=== PATIENT | male | born 2000 | race Two or more races ===

== ENCOUNTER 2019-11-07 21:46 | Emergency (ER) | payer OTHER ==
--- NOTE | 2019-11-07 23:57 | ED Physician Documentation ---
History of Present Illness - Stated complaint Stated Complaint: R HAND INJ - Chief complaint Chief Complaint: Trauma Ext - History obtained from History obtained from: Patient - Additonal information Additional information: Patient is a 19-year-old male who was boxing and is complaining of right hand pain denies any other complaints he is right-hand dominant.Denies any open wounds. Review of Systems Constitutional: reports: Reviewed and negative Eyes: reports: Reviewed and negative Ears: reports: Reviewed and negative Nose: reports: Reviewed and negative Throat: reports: Reviewed and negative Cardiac: reports: Reviewed and negative Respiratory: reports: Reviewed and negative GI: reports: Reviewed and negative : reports: Reviewed and negative Skin: reports: Reviewed and negative Musculoskeletal: reports: Extremity pain Neurologic: reports: Reviewed and negative Psychiatric: reports: Reviewed and negative Endocrine: reports: Reviewed and negative Immunocompromised: reports: Reviewed and negative PD PAST MEDICAL HISTORY - Past Medical History Past Medical History: No - Past Surgical History Past Surgical History: No - Allergies Allergies/Adverse Reactions: Allergies Allergy/AdvReac Type Severity Reaction Status Date / Time No Known Drug Allergies Allergy Verified 10/16/19 17:06 - Social History Does the pt smoke?: No Smoking Status: Never smoker Does the pt drink ETOH?: No Does the pt have substance abuse?: No - Immunizations Immunizations are current?: Yes - POLST Patient has POLST: No PD ED PE NORMAL - Vitals Vital signs reviewed: Yes - General General: Alert and oriented X 3, No acute distress - HEENT HEENT: PERRL - Neck Neck: Supple, no meningeal sign - Cardiac Cardiac: RRR, No murmur - Respiratory Respiratory: Clear bilaterally - Abdomen Abdomen: Normal bowel sounds, Soft, Non tender, Non distended - Derm Derm: Warm and dry - Extremities Extremities: No deformity, Other (Superficial abrasions of the dorsum of the right hand no gross deformity no isolated tenderness over the anatomic snuffbox radial median ulnar motor and sensory exam are intact sensations intact to light touch compartments are soft strength is 5 out of 5) - Neuro Neuro: Alert and oriented X 3 - Psych Psych: Normal mood, Normal affect Results - Vitals Vitals: Vital Signs - 24 hr 11/07/19 22:08 Temperature 36.7 C Heart Rate 89 Respiratory 18 Rate Blood Pressure 114/65 O2 Saturation 98 Oxygen O2 Source Room air PD MEDICAL DECISION MAKING - ED course Complexity details: considered differential (Right hand abrasions and contusions x-rays are negative) Departure - Departure Disposition: 01 Home, Self Care Clinical Impression: Hand contusion Qualifiers: Encounter type: initial encounter Laterality: right Qualified Code(s): S60.221A - Contusion of right hand, initial encounter Condition: Stable Instructions: ED Sprain Hand Follow-Up: your, doctor [Other] Comments: Follow-up with your medical provider on Saturday for recheck. Ice as needed. May take either Tylenol or ibuprofen as needed. May use an Hugo wrap as needed.
[2019-11-08 01:18] VITALS: BP 122/64
--- NOTE | 2019-11-08 08:46 | XRAY Report ---
PROCEDURE: Hand 3 View RT INDICATIONS: right hand pain TECHNIQUE: 3 views of the hand(s) acquired. COMPARISON: None FINDINGS: Bones: No fractures or dislocations. No suspicious bony lesions. Soft tissues: No suspicious soft tissue calcifications. IMPRESSION: No displaced fractures are seen. Note: No significant discrepancy from the preliminary report. Reviewed by: Freddie Cherry MD on 11/08/2019 7:45 AM ANGELLA Approved by: Freddie Cherry MD on 11/08/2019 7:45 AM AKSHAMIR Station ID: [id number]
== END 2019-11-08 01:21 | disposition home or self-care (01) ==
LOC: ED 21:46
DX: S60.221A Contusion of right hand, initial encounter (principal); S60.511A Abrasion of right hand, initial encounter; W51.XXXA Accidental striking against or bumped into by another person, initial encounter; Y93.71 Activity, boxing
CPT/HCPCS: 99282; 99283

== ENCOUNTER 2020-08-10 09:28 | Emergency (ER) | payer OTHER ==
[2020-08-10 09:44] VITALS: BP 117/74
[2020-08-10] MEDS ORDERED: KETOROLAC 30 MG/ML VIAL IVP STA (09:53)
--- NOTE | 2020-08-10 09:54 | ED Physician Documentation ---
PD HPI ABD PAIN - Stated complaint Stated Complaint: ABDOMINAL PX - Chief complaint Chief Complaint: Abd Pain - History obtained from History obtained from: Patient - Additional information Additional information: Previously healthy 20-year-old gentleman developed periumbilical pain yesterday morning and vomited once. It got better throughout the day but then returned overnight and had trouble sleeping last night. He is no longer nauseous. No changes in his bowel movements. No testicular pain. No history of abdominal surgeries. Review of Systems Ten Systems: 10 systems reviewed and negative Constitutional: denies: Fever, Chills Nose: reports: Reviewed and negative Throat: reports: Reviewed and negative Cardiac: reports: Reviewed and negative Respiratory: reports: Reviewed and negative PD PAST MEDICAL HISTORY - Past Medical History Past Medical History: Yes Respiratory: Asthma - Past Surgical History Past Surgical History: No - Present Medications Home Medications: Ambulatory Orders Medication Instructions Recorded Confirmed No Known Home Medications 08/10/20 08/10/20 - Allergies Allergies/Adverse Reactions: Allergies Allergy/AdvReac Type Severity Reaction Status Date / Time No Known Drug Allergies Allergy Verified 08/10/20 09:44 - Social History Does the pt smoke?: No Smoking Status: Never smoker Does the pt drink ETOH?: No Does the pt have substance abuse?: No - Immunizations Immunizations are current?: Yes - POLST Patient has POLST: No PD ED PE NORMAL - Vitals Vital signs reviewed: Yes - General General: Alert and oriented X 3, No acute distress - HEENT HEENT: PERRL, EOMI - Neck Neck: Supple, no meningeal sign, No bony TTP - Cardiac Cardiac: RRR, No murmur - Respiratory Respiratory: No respiratory distress, Clear bilaterally - Abdomen Abdomen: Normal bowel sounds, Other (Mild right-sided abdominal tenderness that actually seems to spare the right lower quadrant. No surgical signs.) - Back Back: No CVA TTP, No spinal TTP - Derm Derm: Normal color, Warm and dry - Extremities Extremities: No edema, No calf tenderness / cord - Neuro Neuro: Alert and oriented X 3, Normal speech Results - Vitals Vitals: Vital Signs - 24 hr 08/10/20 09:34 Temperature 36.3 C L Heart Rate 70 Respiratory 16 Rate Blood Pressure 117/74 O2 Saturation 100 Oxygen O2 Source Room air - Labs Labs: Laboratory Tests 08/10/20 08/10/20 08/10/20 09:18 10:12 10:12 WBC 4.0 L RBC 5.13 Hgb 14.4 Hct 42.4 MCV 82.7 MCH 28.1 MCHC 34.0 RDW 12.0 Plt Count 217 MPV 10.2 Neut # (Auto) 2.4 Lymph # (Auto) 1.1 L [place] # (Auto) 0.3 Eos # (Auto) 0.1 Baso # (Auto) 0.1 Absolute Nucleated RBC 0.00 Nucleated RBC % 0.0 Sodium 137 Potassium 4.0 Chloride 101 Carbon Dioxide 28 Anion Gap 8.0 BUN 16 Creatinine 1.0 Estimated GFR (MDRD) 94 Glucose 93 Calcium 9.6 Total Bilirubin 0.8 AST 19 ALT 18 Alkaline Phosphatase 71 Total Protein 8.0 Albumin 4.7 Globulin 3.3 Albumin/Globulin Ratio 1.4 Lipase 25 Urine Color DARK YELLOW Urine Clarity CLEAR Urine pH 6.0 Ur Specific [place] >=1.030 H Urine Protein NEGATIVE Urine Glucose (UA) NEGATIVE Urine Ketones NEGATIVE Urine Occult Blood NEGATIVE Urine Nitrite NEGATIVE Urine Bilirubin NEGATIVE Urine Urobilinogen 0.2 (NORMAL) Ur Leukocyte Esterase NEGATIVE Ur Microscopic Review NOT INDICATED Urine Culture Comments NOT INDICATED PD MEDICAL DECISION MAKING - ED course ED course: 20 yo male with periumbilcal pain but no e/o serious etiology on w/u. Incidental finding and need for f/u discussed. Departure - Departure Disposition: 01 Home, Self Care Clinical Impression: Abdominal pain Qualifiers: Abdominal location: right lower quadrant Qualified Code(s): R10.31 - Right lower quadrant pain Condition: Good Record reviewed to determine appropriate education?: Yes Instructions: ED Abdominal Pain Unkn Cause Male Comments: No evidence of anything serious like appendicitis. That said the following incidental finding was found on your CT scan: Enhancing focus within the medial segment left hepatic lobe, which may represent a hemangioma or focal nodular hyperplasia. Liver protocol MRI with and without intravenous contrast is recommended to exclude less likely, more aggressive etiologies. [place] in a nonemergent fashion. Return for new or worsening symptoms. Forms: Activity restrictions
[2020-08-10 09:55] LABS: BILIRUBIN,URINE NEGATIVE (NEGATIVE); GLUCOSE, URINE (UA) NEGATIVE (NEGATIVE); KETONES,URINE (UA) NEGATIVE (NEGATIVE); LEUKOCYTE ESTERASE, URINE NEGATIVE (NEGATIVE); NITRITE,URINE NEGATIVE (NEGATIVE); OCCULT BLOOD,URINE NEGATIVE (NEGATIVE); PROTEIN,URINE NEGATIVE (NEGATIVE); UROBILINOGEN,URINE 0.2 (NORMAL) E.U./dL (NORMAL)
[2020-08-10 10:20] LABS: BASOPHILS # (AUTO) 0.1 10^3/uL (0.0-0.1); BASOPHILS % (AUTO) 1.2 %; EOSINOPHILS # (AUTO) 0.1 10^3/uL (0.0-0.7); EOSINOPHILS % (AUTO) 3.5 %; HCT - HEMATOCRIT 42.4 % (42.0-52.0); HGB - HEMOGLOBIN 14.4 g/dL (14.0-18.0); LYMPHOCYTES # (AUTO) 1.1 10^3/uL (1.5-3.5); LYMPHOCYTES % (AUTO) 27.2 %; MEAN CORPUSCULAR HEMOGLOBIN 28.1 pg (27.0-31.0); MEAN CORPUSCULAR VOLUME 82.7 fL (80.0-94.0); MEAN PLATELET VOLUME 10.2 fL (7.4-11.4); MONOCYTES # (AUTO) 0.3 10^3/uL (0.0-1.0); MONOCYTES % (AUTO) 8.5 %; NEUTROPHILS # (AUTO) 2.4 10^3/uL (1.5-6.6); NEUTROPHILS % (AUTO) 59.4 %; PLT - PLATELET COUNT 217 10^3/uL (130-450); RED BLOOD COUNT 5.13 10^6/uL (4.70-6.10)
[2020-08-10] MEDS ORDERED: IOVERSOL 320 100 ML VIAL IVP ONE ×2 (10:28→11:46)
[2020-08-10 10:30] LABS: CLARITY,URINE CLEAR (CLEAR)
[2020-08-10 10:37] LABS: ALBUMIN 4.7 g/dL (3.2-5.5); ALBUMIN/GLOBULIN RATIO 1.4 (1.0-2.2); BILIRUBIN,TOTAL 0.8 mg/dL (0.2-1.0); CALCIUM 9.6 mg/dL (8.5-10.3)
--- NOTE | 2020-08-10 11:28 | CT Report ---
PROCEDURE: Abdomen/Pelvis W INDICATIONS: IV only, abd pain CONTRAST: IV CONTRAST: Optiray 320 ml: 100 PO CONTRAST: *NO PO CONTRAST TECHNIQUE: After the administration of IV contrast, 5 mm thick sections acquired from the diaphragms to the symp hysis. 5 mm thick coronal and sagittal reformats were acquired. For radiation dose reduction, the f ollowing was used: automated exposure control, adjustment of mA and/or kV according to patient size. COMPARISON: None. FINDINGS: Image quality: Excellent. ABDOMEN: Lung bases: Lung bases are clear. Heart size is normal. Solid organs: Liver and spleen are normal in size. There is a 15 mm diameter enhancing focus within the medial segment left hepatic lobe. Gallbladder is grossly unremarkable Biliary system is non dila hemal. Pancreas enhances normally. No adrenal nodules. Kidneys demonstrate normal size and enhanceme nt, without hydronephrosis. Peritoneum and bowel: Bowel loops demonstrate normal wall thickness and caliber. Normal appendix. No free fluid or air. Nodes and vessels: No retroperitoneal or mesenteric adenopathy by size criteria. Aorta and inferior vena cava are normal in size. Miscellaneous: No ventral hernias. PELVIS: Genitourinary: Bladder wall thickness is normal. Miscellaneous: No inguinal hernias or adenopathy. Bones: No suspicious bony lesions. No vertebral body compression fractures. IMPRESSION: 1. No acute process. 2. Normal appendix. 3. Enhancing focus within the medial segment left hepatic lobe, which may represent a hemangioma or f ocal nodular hyperplasia. Liver protocol MRI with and without intravenous contrast is recommended to exclude less likely, more aggressive etiologies. Reviewed by: Stpean Ashraf MD on 08/10/2020 11:26 AM PDT Approved by: Stepan Ashraf MD on 08/10/2020 11:26 AM PDT Station ID: [id number]
== END 2020-08-10 11:50 | disposition home or self-care (01) ==
LOC: ED 09:28
DX: R10.31 Right lower quadrant pain (principal)
CPT/HCPCS: 36415; 74177; 80053; 81003; 83690; 85025; 96374; 99284; Q9967; 81001; 87086

== ENCOUNTER 2020-08-31 09:16 | Emergency (ER) | payer OTHER ==
--- OUTSIDE RECORDS SUMMARY | 2020-08-31 09:19 | EXTERNAL MEDICAL SUMMARY RPT | Continuity of Care Document ---
:2000 Demographics Phone Unavailable Preferred Language Unknown Marital Status Unknown Restorationism Affiliation Unknown Race Unknown Ethnic Group Unknown Author Organization [facility] Address [address] [place] [address] Phone Allergies Encounters Medications Problems Results
--- OUTSIDE RECORDS SUMMARY | 2020-08-31 09:24 | EXTERNAL MEDICAL SUMMARY RPT | Continuity of Care Document ---
:2000 Demographics Phone Unavailable Preferred Language Unknown Marital Status Unknown Evangelical Affiliation Unknown Race Unknown Ethnic Group Unknown Author Organization [facility] Address [address] [place] [address] Phone Allergies Encounters Medications Problems Results
[2020-08-31] MEDS ORDERED: KETOROLAC 30 MG/ML VIAL IVP STA (09:28)
--- NOTE | 2020-08-31 09:29 | ED Physician Documentation ---
PD HPI ABD PAIN - Stated complaint Stated Complaint: LOWER ABD PX - Chief complaint Chief Complaint: Abd Pain - History obtained from History obtained from: Patient - Additional information Additional information: 20-year-old gentleman developed lower abdominal pain yesterday which worsened overnight and is now intolerable. Its not associated with nausea, changes in bowel movements, fevers. No urinary complaints. He was seen here last month for periumbilical pain. No emergency medical condition evident at that time but did have an incidental liver cyst which he has seen his doctor for and is in the process of scheduling MR I of the liver. This pain is different. It is more bilateral pelvic. It is not worse with motion. No history of abdominal surgeries. Review of Systems Constitutional: reports: Reviewed and negative Eyes: reports: Reviewed and negative Ears: reports: Reviewed and negative Nose: reports: Reviewed and negative PD PAST MEDICAL HISTORY - Past Medical History Respiratory: Asthma - Past Surgical History Past Surgical History: No - Present Medications Home Medications: Ambulatory Orders Medication Instructions Recorded Confirmed No Known Home Medications 08/10/20 08/31/20 - Allergies Allergies/Adverse Reactions: Allergies Allergy/AdvReac Type Severity Reaction Status Date / Time No Known Drug Allergies Allergy Verified 08/31/20 09:24 - Social History Does the pt smoke?: No Smoking Status: Never smoker Does the pt drink ETOH?: No Does the pt have substance abuse?: No - Immunizations Immunizations are current?: Yes - POLST Patient has POLST: No PD ED PE NORMAL - Vitals Vital signs reviewed: Yes - General General: Alert and oriented X 3, No acute distress - HEENT HEENT: PERRL, EOMI - Neck Neck: Supple, no meningeal sign, No bony TTP - Cardiac Cardiac: RRR, No murmur - Respiratory Respiratory: No respiratory distress, Clear bilaterally - Abdomen Abdomen: Normal bowel sounds, Other (Tender to both lower quadrants, right worse than left, negative Rovsing sign. No surgical signs.) - Back Back: No CVA TTP, No spinal TTP - Derm Derm: Normal color, Warm and dry - Extremities Extremities: No edema, No calf tenderness / cord - Neuro Neuro: Alert and oriented X 3, Normal speech Results - Vitals Vitals: Vital Signs - 24 hr 08/31/20 08/31/20 08/31/20 09:19 09:40 10:18 Temperature 36.1 C L 36.8 C 36.5 C Heart Rate 79 68 66 Respiratory 16 14 18 Rate Blood Pressure 111/53 L 118/70 101/65 O2 Saturation 99 100 100 Oxygen O2 Source Room air - Labs Labs: Laboratory Tests 08/31/20 08/31/20 08/31/20 08:40 09:30 09:30 WBC 4.7 L RBC 5.40 Hgb 15.1 Hct 44.7 MCV 82.8 MCH 28.0 MCHC 33.8 RDW 12.0 Plt Count 230 MPV 9.9 Neut # (Auto) 2.6 Lymph # (Auto) 1.5 [place] # (Auto) 0.5 Eos # (Auto) 0.1 Baso # (Auto) 0.1 Absolute Nucleated RBC 0.00 Nucleated RBC % 0.0 Sodium 138 Potassium 3.5 Chloride 101 Carbon Dioxide 29 Anion Gap 8.0 BUN 13 Creatinine 1.0 Estimated GFR (MDRD) 94 Glucose 119 H Calcium 10.2 Total Bilirubin 0.9 AST 20 ALT 17 Alkaline Phosphatase 62 Total Protein 8.1 Albumin 4.9 Globulin 3.2 Albumin/Globulin Ratio 1.5 Lipase 24 Urine Color DARK YELLOW Urine Clarity CLEAR Urine pH 6.0 Ur Specific [place] >=1.030 H Urine Protein NEGATIVE Urine Glucose (UA) NEGATIVE Urine Ketones NEGATIVE Urine Occult Blood NEGATIVE Urine Nitrite NEGATIVE Urine Bilirubin NEGATIVE Urine Urobilinogen 0.2 (NORMAL) Ur Leukocyte Esterase NEGATIVE Ur Microscopic Review NOT INDICATED Urine Culture Comments NOT INDICATED PD MEDICAL DECISION MAKING - ED course ED course: 20-year-old gentleman presents with acute lower abdominal pain, right worse than left. Differential diagnosis includes appendicitis, diverticulitis, bowel obstruction. CT demonstrates some constipation. The worry for small bowel enteritis was discussed with the radiologist who was not convinced, given the lack of vomiting or diarrhea I suspect this is a spurious finding. He already has follow-up for the incidental finding in the liver to have MRI done. He just needs to schedule it. He was administered magnesium citrate here. I suspect this will cure him. Adv ised to return if it does not. Departure - Departure Disposition: 01 Home, Self Care Clinical Impression: Abdominal pain Qualifiers: Abdominal location: lower abdomen, unspecified Qualified Code(s): R10.30 - Lower abdominal pain, unspecified Condition: Good Record reviewed to determine appropriate education?: Yes Instructions: ED Abdominal Pain Unkn Cause Male Comments: Make sure to schedule the MRI of your liver. Your CAT scan does look a little constipated to me, try the magnesium citrate and see if that helps. Return for new or worsening symptoms. [place] For [place] records, you checked into the emergency department at 0916, you were released approximately 10:20 AM. Forms: Activity restrictions Discharge Date/Time: 08/31/20 10:25
[2020-08-31 09:40] LABS: BASOPHILS # (AUTO) 0.1 10^3/uL (0.0-0.1); BASOPHILS % (AUTO) 1.5 %; EOSINOPHILS # (AUTO) 0.1 10^3/uL (0.0-0.7); EOSINOPHILS % (AUTO) 1.5 %; HCT - HEMATOCRIT 44.7 % (42.0-52.0); HGB - HEMOGLOBIN 15.1 g/dL (14.0-18.0); LYMPHOCYTES # (AUTO) 1.5 10^3/uL (1.5-3.5); LYMPHOCYTES % (AUTO) 31.2 %; MEAN CORPUSCULAR HGB CONC 33.8 g/dL (32.0-36.0); MEAN CORPUSCULAR VOLUME 82.8 fL (80.0-94.0); MEAN PLATELET VOLUME 9.9 fL (7.4-11.4); MONOCYTES # (AUTO) 0.5 10^3/uL (0.0-1.0); MONOCYTES % (AUTO) 11.2 %; NEUTROPHILS # (AUTO) 2.6 10^3/uL (1.5-6.6); NEUTROPHILS % (AUTO) 54.4 %; PLT - PLATELET COUNT 230 10^3/uL (130-450); WHITE BLOOD COUNT 4.7 x10^3/uL (4.8-10.8)
[2020-08-31] MEDS ORDERED: IOVERSOL 320 100 ML VIAL IVP ONE ×2 (09:44→11:49)
[2020-08-31 09:46] LABS: BILIRUBIN,URINE NEGATIVE (NEGATIVE); GLUCOSE, URINE (UA) NEGATIVE (NEGATIVE); KETONES,URINE (UA) NEGATIVE (NEGATIVE); LEUKOCYTE ESTERASE, URINE NEGATIVE (NEGATIVE); NITRITE,URINE NEGATIVE (NEGATIVE); OCCULT BLOOD,URINE NEGATIVE (NEGATIVE); PROTEIN,URINE NEGATIVE (NEGATIVE); UROBILINOGEN,URINE 0.2 (NORMAL) E.U./dL (NORMAL)
[2020-08-31 09:47] LABS: CLARITY,URINE CLEAR (CLEAR)
[2020-08-31 09:53] LABS: ALBUMIN 4.9 g/dL (3.2-5.5); ALBUMIN/GLOBULIN RATIO 1.5 (1.0-2.2); BILIRUBIN,TOTAL 0.9 mg/dL (0.2-1.0); CALCIUM 10.2 mg/dL (8.5-10.3); POTASSIUM 3.5 mmol/L (3.5-5.0); TOTAL PROTEIN 8.1 g/dL (6.7-8.2)
[2020-08-31] MEDS ORDERED: MAGNESIUM CITRATE 296 ML BOTTLE PO STA (10:12)
--- NOTE | 2020-08-31 10:18 | CT Report ---
PROCEDURE: Abdomen/Pelvis W INDICATIONS: iv only, low abd pain CONTRAST: IV CONTRAST: Optiray 320 ml: 100 PO CONTRAST: *NO PO CONTRAST TECHNIQUE: After the administration of intravenous contrast, 5 mm thick sections acquired from the diaphragms to the symphysis. 5 mm thick coronal and sagittal reformats were acquired. For radiation dose reducti on, the following was used: automated exposure control, adjustment of mA and/or kV according to kristina ent size. COMPARISON: CT abdomen and pelvis 08/10/2020. FINDINGS: Image quality: Excellent. ABDOMEN: Lung bases: Lung bases are clear. Heart size is normal. Solid organs: Liver is normal in size. Incidental hyperenhancing lesion with central lucency and segm ent 4 measuring 1.3 cm, (06/15). Gallbladder is unremarkable. Biliary system is non dilated. Pancre as enhances normally. No splenomegaly. No adrenal nodules. Kidneys demonstrate normal size and enha ncement, without hydronephrosis. Peritoneum and bowel: No small bowel obstruction. No dilated loops of bowel. The small bowel has a ma tted appearance. Retrocecal appendix measuring 0.5 cm in diameter, (09/09). Peritoneal lining in the r ight paracolic gutter is slightly more conspicuous than the left. This is of indeterminate clinical s ignificance. There is somewhat prominent stool in the colon. No free fluid or air. Nodes and vessels: No retroperitoneal or mesenteric adenopathy by size criteria. Aorta and inferior vena cava are normal in size. Miscellaneous: No ventral hernias. PELVIS: Genitourinary: Bladder wall thickness is normal. Miscellaneous: No inguinal hernias or adenopathy. Bones: No suspicious bony lesions. No vertebral body compression fractures. IMPRESSION: 1. The appendix is not dilated. No free fluid. 2. Somewhat prominent stool the colon which could be seen in constipation. 3. Incidental small indeterminant hyperenhancing lesion in the right lobe of liver. This could repres ent focal nodular hyperplasia, hemangioma, or adenoma. Malignant lesion is difficult to exclude. -This could be further characterized with nonemergent liver MRI preferably with Eovist hepatobiliary contrast. Preliminary results were communicated to Dr. Florian at 08/31/2020 10:10 AM PDT. Reviewed by: Jose Antonio Huang MD on 08/31/2020 10:17 AM PDT Approved by: Jose Antonio Huang MD on 08/31/2020 10:17 AM PDT Station ID: [id number]
[2020-08-31 10:19] VITALS: BP 101/65
== END 2020-08-31 10:25 | disposition home or self-care (01) ==
LOC: ED 09:16
DX: R10.31 Right lower quadrant pain (principal); R10.32 Left lower quadrant pain; K59.00 Constipation, unspecified; K76.89 Other specified diseases of liver
CPT/HCPCS: 36415; 74177; 80053; 81003; 83690; 85025; 96374; 99284; A9270; Q9967; 81001; 87086

== ENCOUNTER 2020-09-27 09:00 | Outpatient (CLI) | payer OTHER ==
[~2020-09-27 09:00] MED LIST: GADOXETATE DISODIUM 2.5 MMOL/10 ML VIAL ONE
--- NOTE | 2020-09-27 16:12 | MRI Report ---
PROCEDURE: Abdomen W/WO INDICATIONS: LIVER CYST CONTRAST: IV CONTRAST: NO IV CONTRAST TECHNIQUE: Coronal ultra fast SE, axial 2D spoiled GE in- and [id number]; axial breath-hold T2 fast SE. Dynam ic axial ultra fast GE during the administration of contrast; post-contrast coronal ultra fast GE or 2D spoiled GE with fat saturation from the hepatic dome to the iliac crests. Optional diffusion weig hted imaging and ADC may be performed. COMPARISON: CT abdomen/pelvis 08/31/2020 reviewed. This had shown a 1.3 cm hyperenhancing centrally sl ightly lucent nodule within segment 4 of the liver, left medial hepatic segment. This same area had b een seen on prior 08/10/2020. No change is identified over the short interval period of time between t hose [address] CT studies. FINDINGS: Image quality: Excellent. Lung bases: No basal pleural effusions. Heart size is normal. Solid organs: Liver and spleen are normal in size and enhancement except for the lesion seen by CT s carlene. This nodule shows elevated T2 signal and also elevated signal on diffusion imaging, with con trast enhancement showing early arterial phase peripheral nodularity and subsequent fill-in of contra st which is not complete but near complete, again with peripheral nodularity. This is best seen on MR series 801, image 75 when compared to the subsequent axial imaging series 901, image 72. Subsequent hepatocellular phase of contrast imaging shows a central nidus of hypoenhancement, and the appearance s most likely a manifestation of a hepatic hemangioma. Gallbladder appears subhepatic and extends into the hepatorenal space. Biliary system is non dilated . Pancreas is normal in morphology. No adrenal nodules. Both kidneys demonstrate normal size and e nhancement, without hydronephrosis. Nodes and vessels: No retroperitoneal or mesenteric adenopathy by size criteria. Aorta and inferior vena cava are normal in size. Bowel and peritoneum: Unenhanced bowel loops are normal in caliber. No free fluid. Bones and soft tissues: No ventral hernias. Bone marrow is normal in overall signal. IMPRESSION: Imaging characteristics of the left medial hepatic segment enhancing structure is most consistent wit h hepatic hemangioma. Targeted single organ ultrasound assessment is recommended to identify this str ucture and establish sonographic baseline for follow-up. Assuming this structure can be located follo w-up in 3, 6, and finally 12 months thereafter would be recommended to establish stability of appeara nce over time. Reviewed by: Eze Roberson MD on 09/27/2020 4:10 PM PDT Approved by: Eze Roberson MD on 09/27/2020 4:10 PM PDT Station ID: [id number]
[2020-09-27] MEDS ORDERED: GADOXETATE DISODIUM 2.5 MMOL/10 ML VIAL IVP ONE (16:29)
== END 2020-09-27 09:01 | disposition home or self-care (01) ==
LOC: DI 09:00
PROVIDERS: ATTEND Family Medicine
DX: K76.89 Other specified diseases of liver (principal)
CPT/HCPCS: 74183; A9581

== ENCOUNTER 2020-10-03 11:21 | Emergency (ER) | payer OTHER ==
[2020-10-03 11:44] LABS: BILIRUBIN,URINE NEGATIVE (NEGATIVE); GLUCOSE, URINE (UA) NEGATIVE (NEGATIVE); KETONES,URINE (UA) NEGATIVE (NEGATIVE); LEUKOCYTE ESTERASE, URINE NEGATIVE (NEGATIVE); NITRITE,URINE NEGATIVE (NEGATIVE); OCCULT BLOOD,URINE NEGATIVE (NEGATIVE); PROTEIN,URINE 30 mg/dL (NEGATIVE); UROBILINOGEN,URINE 0.2 (NORMAL) E.U./dL (NORMAL)
[2020-10-03 11:50] LABS: CLARITY,URINE CLEAR (CLEAR)
[2020-10-03 11:57] LABS: BACTERIA,URINE None Seen /HPF (None Seen); MUCUS,URINE Marked Strands; RBC,URINE 0-5 /HPF (0-5); SQUAMOUS EPITHELIAL CELL,UR NONE SEEN (<= Few); WBC,URINE 0-3 /HPF (0-3)
[2020-10-03 11:58] LABS: BASOPHILS # (AUTO) 0.1 10^3/uL (0.0-0.1); BASOPHILS % (AUTO) 1.7 %; EOSINOPHILS # (AUTO) 0.4 10^3/uL (0.0-0.7); EOSINOPHILS % (AUTO) 7.5 %; HCT - HEMATOCRIT 44.7 % (42.0-52.0); HGB - HEMOGLOBIN 15.2 g/dL (14.0-18.0); LYMPHOCYTES # (AUTO) 1.8 10^3/uL (1.5-3.5); LYMPHOCYTES % (AUTO) 33.8 %; MEAN CORPUSCULAR HEMOGLOBIN 27.9 pg (27.0-31.0); MEAN CORPUSCULAR VOLUME 82.2 fL (80.0-94.0); MEAN PLATELET VOLUME 10.3 fL (7.4-11.4); MONOCYTES # (AUTO) 0.5 10^3/uL (0.0-1.0); MONOCYTES % (AUTO) 9.6 %; NEUTROPHILS # (AUTO) 2.4 10^3/uL (1.5-6.6); NEUTROPHILS % (AUTO) 46.8 %; PLT - PLATELET COUNT 229 10^3/uL (130-450); RED BLOOD COUNT 5.44 10^6/uL (4.70-6.10); WHITE BLOOD COUNT 5.2 x10^3/uL (4.8-10.8)
[2020-10-03 12:11] LABS: ALBUMIN 4.8 g/dL (3.2-5.5); ALBUMIN/GLOBULIN RATIO 1.5 (1.0-2.2); BILIRUBIN,TOTAL 0.8 mg/dL (0.2-1.0); CALCIUM 9.7 mg/dL (8.5-10.3); POTASSIUM 3.9 mmol/L (3.5-5.0)
[2020-10-03 13:14] VITALS: BP 110/62
[2020-10-03] MEDS ORDERED: ONDANSETRON ODT 4 MG TABLET TL STA (13:34)
--- NOTE | 2020-10-03 13:37 | ED Physician Documentation ---
PD HPI ABD PAIN - Stated complaint Stated Complaint: N/V STOMACH PX - Chief complaint Chief Complaint: Abd Pain - History obtained from History obtained from: Patient - Additional information Additional information: Patient comes emergency department chief complaint of nausea and vomiting that started last night. He has also had a little bit of right upper quadrant abdominal pain, which he states is normal for him. He has had work-up for this pain and found to have a liver hemangioma for which she is followed by his primary care physician. He has already had MRI and ultrasound states he is not known to have gallstones from those studies. His ultrasound was just done last week and the MRI was done here earlier this year. Patient denies any fevers or chills. No jaundice. No other complaints at this time. He states his nausea is a little better than it was. Review of Systems Ten Systems: 10 systems reviewed and negative Constitutional: reports: Reviewed and negative Eyes: reports: Reviewed and negative Ears: reports: Reviewed and negative Nose: reports: Reviewed and negative Throat: reports: Reviewed and negative Cardiac: reports: Reviewed and negative Respiratory: reports: Reviewed and negative GI: reports: Abdominal Pain, Nausea, Vomiting, Reviewed and negative : reports: Reviewed and negative Skin: reports: Reviewed and negative Musculoskeletal: reports: Reviewed and negative Neurologic: reports: Reviewed and negative Psychiatric: reports: Reviewed and negative Endocrine: reports: Reviewed and negative Immunocompromised: reports: Reviewed and negative PD PAST MEDICAL HISTORY - Past Medical History Past Medical History: Yes Cardiovascular: None Respiratory: Asthma Neuro: None Endocrine/Autoimmune: None GI: None : None HEENT: None Psych: None Musculoskeletal: None Derm: None - Past Surgical History Past Surgical History: No - Present Medications Home Medications: Ambulatory Orders Medication Instructions Recorded Confirmed No Known Home Medications 08/10/20 08/31/20 - Allergies Allergies/Adverse Reactions: Allergies Allergy/AdvReac Type Severity Reaction Status Date / Time No Known Drug Allergies Allergy Verified 10/03/20 11:27 - Social History Does the pt smoke?: No Smoking Status: Never smoker Does the pt drink ETOH?: No Does the pt have substance abuse?: No - Immunizations Immunizations are current?: Yes - POLST Patient has POLST: No PD ED PE NORMAL - Vitals Vital signs reviewed: Yes - General General: Alert and oriented X 3, No acute distress - HEENT HEENT: PERRL - Neck Neck: Supple, no meningeal sign - Cardiac Cardiac: RRR, No murmur - Respiratory Respiratory: No respiratory distress, Clear bilaterally - Abdomen Abdomen: Soft, Non tender, Non distended - Derm Derm: Normal color (No jaundice), Warm and dry, No rash - Extremities Extremities: No deformity - Neuro Neuro: Alert and oriented X 3 - Psych Psych: Normal mood, Normal affect Results - Vitals Vitals: Vital Signs - 24 hr 10/03/20 10/03/20 11:27 13:11 Temperature 36.9 C 36.8 C Heart Rate 76 74 Respiratory 18 16 Rate Blood Pressure 103/63 110/62 O2 Saturation 100 100 Oxygen O2 Source Room air - Labs Labs: Laboratory Tests 10/03/20 10/03/20 10/03/20 11:35 11:54 11:54 WBC 5.2 RBC 5.44 Hgb 15.2 Hct 44.7 MCV 82.2 MCH 27.9 MCHC 34.0 RDW 12.0 Plt Count 229 MPV 10.3 Neut # (Auto) 2.4 Lymph # (Auto) 1.8 [place] # (Auto) 0.5 Eos # (Auto) 0.4 Baso # (Auto) 0.1 Absolute Nucleated RBC 0.00 Nucleated RBC % 0.0 Sodium 135 Potassium 3.9 Chloride 98 L Carbon Dioxide 28 Anion Gap 9.0 BUN 14 Creatinine 1.0 Estimated GFR (MDRD) 94 Glucose 95 Calcium 9.7 Total Bilirubin 0.8 AST 18 ALT 15 Alkaline Phosphatase 67 Total Protein 8.0 Albumin 4.8 Globulin 3.2 Albumin/Globulin Ratio 1.5 Lipase 22 Urine Color YELLOW Urine Clarity CLEAR Urine pH 6.0 Ur Specific [place] >=1.030 H Urine Protein 30 H Urine Glucose (UA) NEGATIVE Urine Ketones NEGATIVE Urine Occult Blood NEGATIVE Urine Nitrite NEGATIVE Urine Bilirubin NEGATIVE Urine Urobilinogen 0.2 (NORMAL) Ur Leukocyte Esterase NEGATIVE Urine RBC 0-5 Urine WBC 0-3 Ur Squamous Epith Cells NONE SEEN Urine Bacteria None Seen Urine Mucus Marked Strands Ur Microscopic Review INDICATED Urine Culture Comments NOT INDICATED PD MEDICAL DECISION MAKING - ED course Complexity details: reviewed results, re-evaluated patient, considered differential, d/w patient ED course: Patient's laboratory studies were unremarkable. He was offered IV fluids and IV antiemetics, but he stated he would rather just have some ODT Zofran here and a prescription to go home with. He is being followed for his hemangioma and right upper quadrant pain and given that this was not worse than baseline, I did not feel further work-up was indicated in the emergency department. We have discussed the usual indications for return. Departure - Departure Disposition: 01 Home, Self Care Clinical Impression: Vomiting Qualifiers: Vomiting type: bilious vomiting Nausea presence: with nausea Qualified Code(s): R11.14 - Bilious vomiting Abdominal pain Qualifiers: Abdominal location: right upper quadrant Qualified Code(s): R10.11 - Right upper quadrant pain Condition: Stable Instructions: ED Nausea Vomiting
== END 2020-10-03 13:42 | disposition home or self-care (01) ==
LOC: ED 11:21
DX: D18.00 Hemangioma unspecified site (principal); R10.11 Right upper quadrant pain
CPT/HCPCS: 36415; 80053; 81001; 83690; 85025; 99283; 99284; Q0162; 81003; 87086

== ENCOUNTER 2020-10-06 07:57 | Emergency (ER) | payer OTHER ==
--- NOTE | 2020-10-06 08:57 | ED Physician Documentation ---
PD HPI ABD PAIN - Stated complaint Stated Complaint: ABDOMINAL PX - Chief complaint Chief Complaint: Abd Pain - History obtained from History obtained from: Patient - History of Present Illness Timing - onset: Enter time (0600), Today Timing - duration: Minutes (30) Timing - details: Now resolved, Intermittant Quality: Cramping, Sharp, Pain Location: Epigastric Improved by: Other (time) Worsened by: Eating Associated symptoms: No: Fever, Nausea, Vomiting, Diarrhea, Constipation Similar symptoms before: No diagnosis, Work up / diagnostics (CT, U/S and MRI) - Additional information Additional information: Previously well 20-year-old male has had episodic abdominal pain and cramping- like nature and he has had a CT scan done of his abdomen and pelvis as well as an ultrasound of his gallbladder and an MRI to evaluate a liver hemangioma found as an incidental finding.This morning he awoke with cramping abdominal pain similar to what is had previous and episodes and this is now resolved. The patient presented to the emergency department 2 days ago with similar pain and he was noted at that time to be constipated he took some magnesium citrate resolved his constipation. He has had another episode of this pain this morning and he gives history of having similar symptoms after eating greasy foods. Review of Systems Constitutional: denies: Fever, Chills, Myalgias Eyes: denies: Decreased vision Ears: denies: Ear pain Nose: denies: Congestion Throat: denies: Sore throat Cardiac: denies: Chest pain / pressure, Palpitations Respiratory: denies: Dyspnea, Cough GI: reports: Abdominal Pain, Constipation (resovled with mag citrate), Diarrhea (after the mag citrate and does not usually have diarrhea otherwise). denies: Nausea, Vomiting : denies: Dysuria, Frequency Skin: denies: Rash Musculoskeletal: denies: Neck pain, Back pain, Extremity pain Neurologic: denies: Generalized weakness, Focal weakness, Numbness PD PAST MEDICAL HISTORY - Past Medical History Past Medical History: Yes Cardiovascular: None Respiratory: Asthma Neuro: None Endocrine/Autoimmune: None GI: Other : None HEENT: None Psych: None Musculoskeletal: None Derm: None Other Past Medical History: liver hemangioma - Past Surgical History Past Surgical History: No - Present Medications Home Medications: Ambulatory Orders Medication Instructions Recorded Confirmed Ondansetron Odt [Zofran] 4 mg TL Q6H PRN #10 tablet 10/03/20 - Allergies Allergies/Adverse Reactions: Allergies Allergy/AdvReac Type Severity Reaction Status Date / Time No Known Drug Allergies Allergy Verified 10/06/20 08:27 - Social History Does the pt smoke?: No Smoking Status: Never smoker Does the pt drink ETOH?: No Does the pt have substance abuse?: No - Immunizations Immunizations are current?: Yes - POLST Patient has POLST: No PD ED PE NORMAL - Vitals Vital signs reviewed: Yes (normal ) - General General: Alert and oriented X 3, No acute distress, Well developed/nourished - HEENT HEENT: Atraumatic, PERRL, EOMI - Neck Neck: Supple, no meningeal sign - Cardiac Cardiac: RRR, No murmur - Respiratory Respiratory: No respiratory distress, Clear bilaterally - Abdomen Abdomen: Normal bowel sounds, Soft, Non tender, Non distended, No organomegaly - Back Back: No CVA TTP, No spinal TTP - Derm Derm: Normal color, Warm and dry, No rash - Extremities Extremities: No deformity, No edema - Neuro Neuro: Alert and oriented X 3, 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, No motor deficit, No sensory deficit, Normal speech Eye Opening: Spontaneous Motor: Obeys Commands Verbal: Oriented GCS Score: 15 - Psych Psych: Normal mood, Normal affect Results - Vitals Vitals: Vital Signs - 24 hr 10/06/20 10/06/20 08:10 09:30 Temperature 36.3 C L Heart Rate 70 65 Respiratory 16 16 Rate Blood Pressure 101/72 105/66 O2 Saturation 100 100 Oxygen O2 Source Room air PD MEDICAL DECISION MAKING - ED course Complexity details: considered differential, d/w patient ED course: 20-year-old male with episodic abdominal pain has had another episode of abdominal pain this morning it is now resolved he has a completely normal physical examination. He is not vomiting. This patient has had episodic cramping abdominal pain and relates a history of worsening symptoms after eating greasy food. The patient has had prior work-up including imaging which does not implicate the gallbladder. He does have an incidental liver hemangioma. I have encouraged the patient to seek a HIDA scan as he does appear to have some gallbladder dysfunction. By history. Departure - Departure Disposition: 01 Home, Self Care Clinical Impression: Abdominal pain Qualifiers: Abdominal location: epigastric Qualified Code(s): R10.13 - Epigastric pain Condition: Stable Instructions: ED Abdominal Pain Unkn Cause Follow-Up: PRINCE Randall [Provider Group] Comments: Today your pain has resolved. The historical fact of having similar pains after eating greasy foods is a reason to pursue further imaging with a HIDA scan which will show the function of your gallbladder. Follow-up with your primary care doctor to schedule this test as an outpatient.
[2020-10-06 09:41] VITALS: BP 105/66
== END 2020-10-06 09:38 | disposition home or self-care (01) ==
LOC: ED 07:57
DX: R10.13 Epigastric pain (principal); D18.09 Hemangioma of other sites
CPT/HCPCS: 99281; 99284

== ENCOUNTER 2020-10-18 10:14 | Emergency (ER) | payer OTHER ==
[2020-10-18] MEDS ORDERED: ONDANSETRON ODT 4 MG TABLET TL STA (10:58)
--- NOTE | 2020-10-18 11:00 | ED Physician Documentation ---
History of Present Illness - Stated complaint Stated Complaint: N/V HEADACHE - Chief complaint Chief Complaint: General - History obtained from History obtained from: Patient - History of Present Illness Timing: Today Pain level max: 5 Pain level now: 0 - Additonal information Additional information: 20-year-old male states that he woke up this morning feeling nauseated with a headache. He states that all symptoms have since resolved and he needs a note for work. He states that he has nausea occasionally throughout the day. Nothing makes it better or worse. He states the headache was mild in nature. Occasionally has headaches, does not seem to be pattern to the morning. Zofran has helped in the past. No fevers. No chills. No cough. No congestion. No abdominal pain. No numbness or weakness. Review of Systems Constitutional: denies: Fever, Chills GI: denies: Abdominal Pain, Vomiting, Diarrhea Skin: denies: Rash Musculoskeletal: denies: Neck pain, Back pain Neurologic: denies: Headache PD PAST MEDICAL HISTORY - Past Medical History Cardiovascular: None Respiratory: Asthma Neuro: None Endocrine/Autoimmune: None GI: Other : None HEENT: None Psych: None Musculoskeletal: None Derm: None - Past Surgical History Past Surgical History: No - Present Medications Home Medications: Ambulatory Orders Medication Instructions Recorded Confirmed Ondansetron Odt [Zofran] 4 mg TL Q6H PRN #10 tablet 10/03/20 Ondansetron Odt [Zofran] 4 mg TL Q6H PRN #10 tablet 10/18/20 - Allergies Allergies/Adverse Reactions: Allergies Allergy/AdvReac Type Severity Reaction Status Date / Time No Known Drug Allergies Allergy Verified 10/18/20 10:37 - Social History Does the pt smoke?: No Smoking Status: Never smoker Does the pt drink ETOH?: No Does the pt have substance abuse?: No - Immunizations Immunizations are current?: Yes - POLST Patient has POLST: No PD ED PE NORMAL - Vitals Vital signs reviewed: Yes - General General: Alert and oriented X 3, No acute distress - HEENT HEENT: PERRL, EOMI, Moist mucous membranes - Neck Neck: Supple, no meningeal sign - Cardiac Cardiac: RRR, No murmur - Respiratory Respiratory: Clear bilaterally - Abdomen Abdomen: Soft, Non tender, Non distended - Derm Derm: Warm and dry - Extremities Extremities: No edema - Neuro Neuro: Alert and oriented X 3, 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 Will prescribe Zofran for home. Patient is well- appearing, nontoxic. Afebrile. Patient counseled regarding signs and symptoms for which I believe and urgent re-evaluation would be necessary. Patient with good understanding of and agreement to plan and is comfortable going home at this time This document was made in part using voice recognition software. While efforts are made to proofread this document, sound alike and grammatical errors may occur. Departure - Departure Disposition: 01 Home, Self Care Clinical Impression: Nausea Headache Qualifiers: Headache type: unspecified Headache chronicity pattern: acute headache Intractability: not intractable Qualified Code(s): R51.9 - Headache, unspecified Condition: Good Instructions: ED Cephalgia Unspecified, ED Nausea Vomiting Follow-Up: PRINCE Randall [Provider Group] - Within 1 week Prescriptions: Ondansetron Odt [Zofran] 4 mg TL Q6H PRN #10 tablet PRN Reason: Nausea / Vomiting Comments: The cause of your symptoms is unclear today. Follow-up with your doctor for further care. Return if you worsen. You can use the Zofran as needed. Forms: Activity restrictions Discharge Date/Time: 10/18/20 11:06
[2020-10-18 11:07] VITALS: BP 117/73
== END 2020-10-18 11:06 | disposition home or self-care (01) ==
LOC: ED 10:14
DX: R11.0 Nausea (principal); R51.9 Headache, unspecified
CPT/HCPCS: 99282; 99284; Q0162

== ENCOUNTER 2020-10-19 11:37 | Emergency (ER) | payer OTHER | END 2020-10-19 12:21 | disposition home or self-care (01) | LOC: ED 11:37 | DX: Z53.21 Procedure and treatment not carried out due to patient leaving prior to being seen by health care provider (principal) ==

== ENCOUNTER 2020-11-09 12:15 | Emergency (ER) | payer OTHER ==
[2020-11-09 12:25] VITALS: BP 113/59
[2020-11-09] MEDS ORDERED: ONDANSETRON ODT 4 MG TABLET TL STA (13:04)
[2020-11-09 13:08] LABS: BASOPHILS # (AUTO) 0.1 10^3/uL (0.0-0.1); BASOPHILS % (AUTO) 1.2 %; EOSINOPHILS # (AUTO) 0.2 10^3/uL (0.0-0.7); EOSINOPHILS % (AUTO) 4.5 %; HCT - HEMATOCRIT 43.4 % (42.0-52.0); HGB - HEMOGLOBIN 14.9 g/dL (14.0-18.0); LYMPHOCYTES # (AUTO) 1.2 10^3/uL (1.5-3.5); LYMPHOCYTES % (AUTO) 29.8 %; MEAN CORPUSCULAR HEMOGLOBIN 28.7 pg (27.0-31.0); MEAN CORPUSCULAR HGB CONC 34.3 g/dL (32.0-36.0); MEAN CORPUSCULAR VOLUME 83.6 fL (80.0-94.0); MONOCYTES # (AUTO) 0.4 10^3/uL (0.0-1.0); MONOCYTES % (AUTO) 9.2 %; NEUTROPHILS # (AUTO) 2.2 10^3/uL (1.5-6.6); NEUTROPHILS % (AUTO) 54.8 %; PLT - PLATELET COUNT 238 10^3/uL (130-450); RED BLOOD COUNT 5.19 10^6/uL (4.70-6.10)
[2020-11-09 13:20] LABS: ALBUMIN 4.6 g/dL (3.2-5.5); ALBUMIN/GLOBULIN RATIO 1.4 (1.0-2.2); CALCIUM 9.7 mg/dL (8.5-10.3); CREATININE 0.9 mg/dL (0.6-1.2); POTASSIUM 4.1 mmol/L (3.5-5.0); TOTAL PROTEIN 7.8 g/dL (6.7-8.2)
--- NOTE | 2020-11-09 13:28 | ED Physician Documentation ---
History of Present Illness - Stated complaint Stated Complaint: VOMITING - Chief complaint Chief Complaint: Abd Pain - Additonal information Additional information: 20-year-old male is brought to the emergency department for evaluation of per sistent vomiting he reports that for almost every morning for the last 2 to 3 months he wakes up and is nauseated and vomits. This is usually resolved by taking Zofran. He denies any abdominal pain night sweats or weight loss. No diarrhea changes in bowel habits. He attempted to be seen by [facility] but was told to come to the ER. His next appointment is scheduled for March 2021. He reports that his sister and his mom are also frequent vomitus. He thinks that they may have been diagnosed with acid reflux. He denies any alcohol or tobacco use. No cannabis use he is in the [employer]. He is not having any abdominal pain. He is requesting a refill for Zofran. Review of Systems Constitutional: denies: Fever, Chills, Fatigue, Weight Loss Eyes: reports: Reviewed and negative Ears: reports: Reviewed and negative Throat: reports: Reviewed and negative Cardiac: reports: Reviewed and negative Respiratory: reports: Reviewed and negative GI: reports: Nausea, Vomiting. denies: Abdominal Pain, Constipation, Diarrhea, Hematemesis, Bloody / black stool : reports: Reviewed and negative Skin: reports: Reviewed and negative PD PAST MEDICAL HISTORY - Past Medical History Past Medical History: Yes Cardiovascular: None Respiratory: Asthma Neuro: None Endocrine/Autoimmune: None GI: GERD, Other : None HEENT: None Psych: None Musculoskeletal: None Derm: None - Past Surgical History Past Surgical History: No - Present Medications Home Medications: Ambulatory Orders Medication Instructions Recorded Confirmed Ondansetron Odt [Zofran] 4 mg TL Q6H PRN #10 tablet 10/03/20 Ondansetron Odt [Zofran] 4 mg TL Q6H PRN #10 tablet 10/18/20 Omeprazole 40 mg PO DAILY #30 11/09/20 Ondansetron Odt [Zofran] 4 mg TL Q6H PRN #20 tablet 11/09/20 - Allergies Allergies/Adverse Reactions: Allergies Allergy/AdvReac Type Severity Reaction Status Date / Time No Known Drug Allergies Allergy Verified 10/18/20 10:37 - Social History Does the pt smoke?: No Smoking Status: Never smoker Does the pt drink ETOH?: No Does the pt have substance abuse?: No - Immunizations Immunizations are current?: Yes - POLST Patient has POLST: No PD ED PE NORMAL - General General: Alert and oriented X 3, No acute distress - Neck Neck: Supple, no meningeal sign - Cardiac Cardiac: RRR, No murmur - Respiratory Respiratory: Clear bilaterally - Abdomen Abdomen: Normal bowel sounds, Soft, Non tender, Non distended - Back Back: No CVA TTP - Derm Derm: Normal color, Warm and dry, No rash - Extremities Extremities: No deformity - Neuro Neuro: Alert and oriented X 3 Results - Vitals Vitals: Vital Signs - 24 hr 11/09/20 12:21 Temperature 36.5 C Heart Rate 74 Respiratory 16 Rate Blood Pressure 113/59 L O2 Saturation 99 Oxygen O2 Source Room air - Labs Labs: Laboratory Tests 11/09/20 11/09/20 13:01 13:01 WBC 4.0 L RBC 5.19 Hgb 14.9 Hct 43.4 MCV 83.6 MCH 28.7 MCHC 34.3 RDW 12.0 Plt Count 238 MPV 10.0 Neut # (Auto) 2.2 Lymph # (Auto) 1.2 L [place] # (Auto) 0.4 Eos # (Auto) 0.2 Baso # (Auto) 0.1 Absolute Nucleated RBC 0.00 Nucleated RBC % 0.0 Sodium 141 Potassium 4.1 Chloride 103 Carbon Dioxide 29 Anion Gap 9.0 BUN 10 Creatinine 0.9 Estimated GFR (MDRD) 107 Glucose 92 Calcium 9.7 Total Bilirubin 1.0 AST 17 ALT 14 Alkaline Phosphatase 67 Total Protein 7.8 Albumin 4.6 Globulin 3.2 Albumin/Globulin Ratio 1.4 Lipase 23 PD MEDICAL DECISION MAKING - ED course Complexity details: d/w patient ED course: Well-appearing 20-year-old male who comes to the ER for recurrent vomiting typically in the mornings when he wakes up. He does not typically have vomiting throughout the day after taking Zofran. He reports similar in his mom and sister. This patient denies acid reflux symptoms in the morning or waking up to cough at night. However recurrent vomiting is abnormal especially in this age group. I would like to start him on omeprazole and write a prescription for Zofran. I have encouraged him to follow-up more closely with [facility] as he certainly warrants an upper EGD. Screening labs today are unremarkable and no abdominal pain was elicited thus we did not perform CT scanning of the abdomen which is likely to be nondiagnostic at this time. Emergent return precautions were discussed. Departure - Departure Disposition: 01 Home, Self Care Clinical Impression: Vomiting Qualifiers: Vomiting type: unspecified Vomiting Intractability: non-intractable Nausea presence: with nausea Qualified Code(s): R11.2 - Nausea with vomiting, unspecified Condition: Stable Record reviewed to determine appropriate education?: Yes Instructions: ED Nausea Vomiting Prescriptions: Omeprazole 40 mg PO DAILY #30 Ondansetron Odt [Zofran] 4 mg TL Q6H PRN #20 tablet PRN Reason: Nausea / Vomiting Comments: Rolly were seen in the ER today for evaluation of nausea and vomiting. This has been ongoing for a number of months and is absolutely not normal. Your screening labs today are all normal. I do suspect that you may have silent acid reflux that is contributing to the symptoms therefore I would like you to start taking omeprazole every day. If after taking this for a few days you find that the nausea and vomiting in the morning is improved that is likely the cause. I am prescribing a limited amount of Zofran to help. No matter what [place] You should be referred to a sawmilling operator for an upper EGD or endoscopy where they can look at your esophagus stomach and first part of your intestines to determine if there is a reason for the vomiting there. If at any point you have uncontrolled vomiting, suddenly severe abdominal pain black or bloody stools then please return immediately to the ER for second evaluation.
== END 2020-11-09 13:36 | disposition home or self-care (01) ==
LOC: ED 12:15
DX: R11.2 Nausea with vomiting, unspecified (principal)
CPT/HCPCS: 36415; 80053; 83690; 85025; 99283; 99284; Q0162

== ENCOUNTER 2020-12-05 07:24 | Emergency (ER) | payer OTHER ==
[2020-12-05 07:32] VITALS: BP 117/68
[2020-12-05] MEDS ORDERED: KETOROLAC 60 MG/2 ML VIAL IM STA (08:21)
--- NOTE | 2020-12-05 08:24 | ED Physician Documentation ---
PD HPI CHEST PAIN - Stated complaint Stated Complaint: CHEST PX - Chief complaint Chief Complaint: Cardiac - History obtained from History obtained from: Patient - Additional information Additional information: Patient comes emergency department chief complaint of chest pain on the right side that started sometime this morning. Patient states he first noticed it when he woke up this morning around 6. Patient denies any shortness of breath, nausea, vomiting, lower extremity swelling or pain, cough, or fevers. He states he mowed the lawn yesterday but otherwise, has not been doing anything stren uous. He is right side dominant. No left-sided chest pain. No abdominal pain. No history of gallbladder disease. No family history of gallbladder disease. No other complaints at this time. Nothing seems to make the pain better or worse. Review of Systems Ten Systems: 10 systems reviewed and negative Constitutional: reports: Reviewed and negative Eyes: reports: Reviewed and negative Ears: reports: Reviewed and negative Nose: reports: Reviewed and negative Throat: reports: Reviewed and negative Cardiac: reports: Chest pain / pressure Respiratory: reports: Reviewed and negative GI: reports: Reviewed and negative : reports: Reviewed and negative Skin: reports: Reviewed and negative Musculoskeletal: reports: Reviewed and negative Neurologic: reports: Reviewed and negative Psychiatric: reports: Reviewed and negative Endocrine: reports: Reviewed and negative Immunocompromised: reports: Reviewed and negative PD PAST MEDICAL HISTORY - Past Medical History Cardiovascular: None Respiratory: Asthma Neuro: None Endocrine/Autoimmune: None GI: GERD, Other : None HEENT: None Psych: None Musculoskeletal: None Derm: None - Past Surgical History Past Surgical History: No - Present Medications Home Medications: Ambulatory Orders Medication Instructions Recorded Confirmed Ondansetron Odt [Zofran] 4 mg TL Q6H PRN #10 tablet 10/03/20 Ondansetron Odt [Zofran] 4 mg TL Q6H PRN #10 tablet 10/18/20 Omeprazole 40 mg PO DAILY #30 11/09/20 Ondansetron Odt [Zofran] 4 mg TL Q6H PRN #20 tablet 11/09/20 - Allergies Allergies/Adverse Reactions: Allergies Allergy/AdvReac Type Severity Reaction Status Date / Time No Known Drug Allergies Allergy Verified 10/18/20 10:37 - Social History Does the pt smoke?: No Smoking Status: Never smoker Does the pt drink ETOH?: No Does the pt have substance abuse?: No - Immunizations Immunizations are current?: Yes - POLST Patient has POLST: No PD ED PE NORMAL - Vitals Vital signs reviewed: Yes - General General: Alert and oriented X 3, No acute distress, Well developed/nourished - HEENT HEENT: Atraumatic, PERRL, EOMI, Moist mucous membranes - Neck Neck: Supple, no meningeal sign - Cardiac Cardiac: RRR, No murmur, Strong equal pulses - Respiratory Respiratory: No respiratory distress, Clear bilaterally - Abdomen Abdomen: Soft, Non tender, Non distended - Derm Derm: Normal color, Warm and dry, No rash - Extremities Extremities: No deformity, No edema, No calf tenderness / cord - Neuro Neuro: Alert and oriented X 3, heating unit mechanic 2-12 intact, Normal speech - Psych Psych: Normal mood, Normal affect PD ED PE EXPANDED - Free text exam Free text exam: No chest wall tenderness. Results - Vitals Vitals: Oxygen O2 Source Room air - EKG (time done) 0732 Rate: Rate (enter#) (59) Rhythm: NSR [place]: Normal Intervals: Normal IN QRS: Normal Ischemia: Normal ST segments. No: T wave inversion Compare to prior EKG: Old EKG unavailable Computer interpretation: Agree with computer - Rads (name of study) chest xr Radiology: Final report received, EMP read indepedently, See rad report (neg) PD MEDICAL DECISION MAKING - ED course Complexity details: reviewed results, re-evaluated patient, considered differential, d/w patient ED course: Patient was worked up with EKG and chest x-ray, both of which were unremarkable. Risk for any of the emergent causes of chest pain and symptoms were not indicative of any of these. He was stable for discharge home. We have discussed symptomatic management at home. He has been offered a dose of Toradol here, but declined. We discussed the usual indications for return. Departure - Departure Disposition: 01 Home, Self Care Clinical Impression: Chest pain Qualifiers: Chest pain type: unspecified Qualified Code(s): R07.9 - Chest pain, unspecified Condition: Stable Instructions: ED Chest Pain NonCardiac Comments: Your chest x-ray looks good, as does your EKG. No emergent condition has been found today. You checked in at approximately 7:25 and were discharged just before 9:30. Discharge Date/Time: 12/05/20:30
--- NOTE | 2020-12-05 08:49 | XRAY Report ---
PROCEDURE: Chest 1 View X-Ray INDICATIONS: chest pain TECHNIQUE: One view of the chest was acquired. COMPARISON: None FINDINGS: Surgical changes and devices: None. Lungs and pleura: No pleural effusions or pneumothorax. Lungs are clear. Mediastinum: Mediastinal contours appear normal. Heart size is normal. Bones and chest wall: No suspicious bony lesions. Overlying soft tissues appear unremarkable. IMPRESSION: No acute pulmonary process. Reviewed by: Hemalatha Fonseca MD on 12/05/2020 8:48 AM PDT Approved by: Hemalatha Fonseca MD on 12/05/2020 8:48 AM PDT Station ID: [id number]
== END 2020-12-05 09:30 | disposition home or self-care (01) ==
LOC: ED 07:24
DX: R07.9 Chest pain, unspecified (principal)
CPT/HCPCS: 93005; 99283; 99284

== ENCOUNTER 2020-12-14 12:26 | Emergency (ER) | payer OTHER ==
[2020-12-14 12:45] VITALS: BP 114/69
[2020-12-14 16:09] LABS: BASOPHILS # (AUTO) 0.1 10^3/uL (0.0-0.1); BASOPHILS % (AUTO) 1.1 %; EOSINOPHILS # (AUTO) 0.1 10^3/uL (0.0-0.7); EOSINOPHILS % (AUTO) 2.3 %; HGB - HEMOGLOBIN 14.1 g/dL (14.0-18.0); LYMPHOCYTES # (AUTO) 1.1 10^3/uL (1.5-3.5); LYMPHOCYTES % (AUTO) 19.1 %; MEAN CORPUSCULAR HEMOGLOBIN 27.9 pg (27.0-31.0); MEAN CORPUSCULAR HGB CONC 33.6 g/dL (32.0-36.0); MEAN PLATELET VOLUME 10.2 fL (7.4-11.4); MONOCYTES # (AUTO) 0.3 10^3/uL (0.0-1.0); MONOCYTES % (AUTO) 6.1 %; NEUTROPHILS % (AUTO) 70.9 %; PLT - PLATELET COUNT 218 10^3/uL (130-450); RED BLOOD COUNT 5.06 10^6/uL (4.70-6.10); RED CELL DISTRIBUTION WIDTH 11.9 % (12.0-15.0); WHITE BLOOD COUNT 5.6 x10^3/uL (4.8-10.8)
--- NOTE | 2020-12-14 16:13 | ED Physician Documentation ---
PD HPI CHEST PAIN - Stated complaint Stated Complaint: CHEST PX - Chief complaint Chief Complaint: Cardiac - History obtained from History obtained from: Patient - Additional information Additional information: 20 yo M presents w/ right chest pain for about a week receiving his covid vaccine. He was actually seen here several days ago for same and had a negative workup at that time. He presents w/ same sx today. Pain is on the right side of the chest and he feels short of breath at times. He sometimes feels he has to lean forward to take a deep breath. He has no palpitations, weakness, diaphores is, abd pain, n/v. No rash. He has not attempted any medication for this pain. Review of Systems Constitutional: reports: Reviewed and negative Eyes: reports: Reviewed and negative Ears: reports: Reviewed and negative Nose: reports: Reviewed and negative Throat: reports: Reviewed and negative Cardiac: reports: Chest pain / pressure, Palpitations. denies: Pedal edema, Calf pain Respiratory: reports: Dyspnea. denies: Cough, Hemoptysis, Wheezing GI: reports: Reviewed and negative : reports: Reviewed and negative Musculoskeletal: reports: Reviewed and negative Neurologic: reports: Reviewed and negative Psychiatric: reports: Reviewed and negative Endocrine: reports: Reviewed and negative Immunocompromised: reports: Reviewed and negative PD PAST MEDICAL HISTORY - Past Medical History Cardiovascular: None Respiratory: Asthma Neuro: None Endocrine/Autoimmune: None GI: GERD, Other : None HEENT: None Psych: None Musculoskeletal: None Derm: None - Past Surgical History Past Surgical History: No - Present Medications Home Medications: Ambulatory Orders Medication Instructions Recorded Confirmed Ondansetron Odt [Zofran] 4 mg TL Q6H PRN #10 tablet 10/03/20 Ondansetron Odt [Zofran] 4 mg TL Q6H PRN #10 tablet 10/18/20 Omeprazole 40 mg PO DAILY #30 11/09/20 Ondansetron Odt [Zofran] 4 mg TL Q6H PRN #20 tablet 11/09/20 - Allergies Allergies/Adverse Reactions: Allergies Allergy/AdvReac Type Severity Reaction Status Date / Time No Known Drug Allergies Allergy Verified 12/14/20 12:43 - Social History Does the pt smoke?: No Smoking Status: Never smoker Does the pt drink ETOH?: No Does the pt have substance abuse?: No - Immunizations Immunizations are current?: Yes - POLST Patient has POLST: No PD ED PE NORMAL - Vitals Vital signs reviewed: Yes - General General: Alert and oriented X 3, No acute distress, Well developed/nourished - HEENT HEENT: Atraumatic, Moist mucous membranes, Pharynx benign - Neck Neck: Supple, no meningeal sign, No JVD - Cardiac Cardiac: RRR, No murmur, No gallop, No rub, Strong equal pulses - Respiratory Respiratory: No respiratory distress, Clear bilaterally - Abdomen Abdomen: Normal bowel sounds, Soft, Non tender, Non distended - Derm Derm: Normal color, Warm and dry, No rash - Extremities Extremities: No deformity, No tenderness to palpate, Normal ROM s pain, No edema, No calf tenderness / cord - Neuro Neuro: Alert and oriented X 3, No motor deficit, No sensory deficit, Normal speech Eye Opening: Spontaneous Motor: Obeys Commands Verbal: Oriented GCS Score: 15 - Psych Psych: Normal mood, Normal affect Results - Vitals Vitals: Vital Signs - 24 hr 12/14/20 12:43 Temperature 36.8 C Heart Rate 69 Respiratory 19 Rate Blood Pressure 114/69 O2 Saturation 98 Oxygen O2 Source Room air - Labs Labs: Laboratory Tests 12/14/20 12/14/20 12/14/20 16:05 16:05 16:05 WBC 5.6 RBC 5.06 Hgb 14.1 Hct 42.0 MCV 83.0 MCH 27.9 MCHC 33.6 RDW 11.9 L Plt Count 218 MPV 10.2 Neut # (Auto) 4.0 Lymph # (Auto) 1.1 L Lyman # (Auto) 0.3 Eos # (Auto) 0.1 Baso # (Auto) 0.1 Absolute Nucleated RBC 0.00 Nucleated RBC % 0.0 ESR Sodium 138 Potassium 3.3 L Chloride 101 Carbon Dioxide 28 Anion Gap 9.0 BUN 13 Creatinine 0.9 Estimated GFR (MDRD) 107 Glucose 121 H Calcium 9.6 Total Bilirubin 0.7 AST 17 ALT 13 Alkaline Phosphatase 62 Troponin I High Sens C-Reactive Protein < 1.0 B-Natriuretic Peptide 13 Total Protein 7.9 Albumin 4.6 Globulin 3.3 Albumin/Globulin Ratio 1.4 Lipase 26 12/14/20 12/14/20 16:05 16:05 WBC RBC Hgb Hct MCV MCH MCHC RDW Plt Count MPV Neut # (Auto) Lymph # (Auto) Lyman # (Auto) Eos # (Auto) Baso # (Auto) Absolute Nucleated RBC Nucleated RBC % ESR 1 Sodium Potassium Chloride Carbon Dioxide Anion Gap BUN Creatinine Estimated GFR (MDRD) Glucose Calcium Total Bilirubin AST ALT Alkaline Phosphatase Troponin I High Sens < 2.3 L C-Reactive Protein B-Natriuretic Peptide Total Protein Albumin Globulin Albumin/Globulin Ratio Lipase PD MEDICAL DECISION MAKING - ED course Complexity details: reviewed old records, reviewed results, re-evaluated patient, considered differential, d/w patient ED course: 20 yo M w/ chest pain since shortly after receiving the Covid vaccine. He was seen here previously for same and records reviewed though only after heart workup obtained. Differential today including myocarditis, pna, msk pain, anxiety, and less likely pe or acs. His workup was reassuring w/ no signs of ischemia or inflammation on labs or EKG and another negative chest xray. PERC score is 0, thus further workup for PE not obtained. He may have a mild costochondritis or very mild myocarditis and was advised to take ibuprofen for the pain. If sx persisted beyond 1 week I recommended follow up w/ PCP and to consider echocardiogram at that time. Departure - Departure Disposition: 01 Home, Self Care Clinical Impression: Atypical chest pain, Chest wall pain Condition: Good Instructions: ED Chest Pain NonCardiac, ED Chest Pain Atypical Unkn Cause Comments: You presented with chest pain. Your workup here including chest xray, EKG, and labs are reassuring and not suggestive of a cardiac cause, or inflammation around the heart. In rare circumstances viruses or new vaccines or medications can cause some inflammation around the heart. I do not see signs of this in your labs but it is possible to have a small amount of inflammation. Typically this goes away on its own and can be managed with antiinflammatories such as Ibuprofen. Please try ibuprofen as discussed. Follow up with your primary doctor in 1 week if your symptoms persist at which time I would recommend an echocardiogram. Return to the ER if you have worsening symptoms. Forms: Activity restrictions Discharge Date/Time: 12/14/20 16:59
--- NOTE | 2020-12-14 16:19 | XRAY Report ---
PROCEDURE: Chest 2 View X-Ray INDICATIONS: Cough, chest pain TECHNIQUE: 2 view(s) of the chest. COMPARISON: 12/05/2020 FINDINGS: Surgical changes and devices: None. Lungs and pleura: No pleural effusions or pneumothorax. Lungs are clear. Mediastinum: Mediastinal contours are normal. Heart size is normal. Bones and chest wall: No suspicious bony abnormalities. Soft tissues appear unremarkable. IMPRESSION: No acute cardiopulmonary process demonstrated radiographically. Reviewed by: Ko Chung MD on 12/14/2020 4:18 PM PDT Approved by: Ko Chung MD on 12/14/2020 4:18 PM PDT Station ID: [id number]
[2020-12-14 16:29] LABS: ALBUMIN 4.6 g/dL (3.2-5.5); ALBUMIN/GLOBULIN RATIO 1.4 (1.0-2.2); ALKALINE PHOSPHATASE 62 IU/L (42-121); ALT ALANINE AMINOTRANSFERASE 13 IU/L (10-60); AST ASPARTATE AMINOTRANSFERASE 17 IU/L (10-42); BILIRUBIN,TOTAL 0.7 mg/dL (0.2-1.0); BUN - BLOOD UREA NITROGEN 13 mg/dL (6-20); CALCIUM 9.6 mg/dL (8.5-10.3); CARBON DIOXIDE - CO2 28 mmol/L (21-32); CHLORIDE 101 mmol/L (101-111); CREATININE 0.9 mg/dL (0.6-1.2); GFR - MDRD 107 (>89); GLUCOSE 121 mg/dL (70-100); LIPASE 26 U/L (22-51); POTASSIUM 3.3 mmol/L (3.5-5.0); SODIUM 138 mmol/L (135-145); TOTAL PROTEIN 7.9 g/dL (6.7-8.2)
[2020-12-14 16:31] LABS: CRP - C-REACTIVE PROTEIN < 1.0 mg/dL (0-1.0)
== END 2020-12-14 16:59 | disposition home or self-care (01) ==
LOC: ED 12:26
DX: R07.89 Other chest pain (principal)
CPT/HCPCS: 36415; 80053; 83690; 83880; 84484; 85025; 85651; 86140; 93005; 99284

== ENCOUNTER 2020-12-20 08:17 | Emergency (ER) | payer OTHER ==
--- NOTE | 2020-12-20 08:54 | ED Physician Documentation ---
PD HPI CHEST PAIN - Stated complaint Stated Complaint: CHEST PX - Chief complaint Chief Complaint: Cardiac - History obtained from History obtained from: Patient - Additional information Additional information: Patient returns to the emergency department for chief complaint of chest pain. Patient states that this time, it started around 3 or 4 in the morning and felt like [id number] intermittently stabbing around his sternal area. Patient states nothing made it better or worse. No associated symptoms whatsoever. No radiation. Patient states the pain is little better now. Patient has been seen 2 other times this month for chest pain and also has been seen throughout the summer for upper abdominal pain. He has had extensive work-up including right upper quadrant ultrasound, labs including cardiac, multiple EKGs, and chest x- ray, all of which have been unremarkable. The patient has been advised to follow-up with his primary care physician, but has not been seen in the past month. The patient states he is "going to" make an appointment. Patient denies any anxiety. He states his stress levels have been up a little bit. 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 He has a history of acid reflux from time to time, but states this feels different. No personal history of DVT. He thinks one of his female relatives may have had 1. No calf pain or edema. He does note that he did workout yesterday and did work both chest and shoulders. No history of Marfan's or Lea-Danlos. No other complaints at this time. Review of Systems Ten Systems: 10 systems reviewed and negative Constitutional: reports: Reviewed and negative Eyes: reports: Reviewed and negative Ears: reports: Reviewed and negative Nose: reports: Reviewed and negative Throat: reports: Reviewed and negative Cardiac: reports: Chest pain / pressure Respiratory: reports: Reviewed and negative GI: reports: Reviewed and negative : reports: Reviewed and negative Skin: reports: Reviewed and negative Musculoskeletal: reports: Reviewed and negative Neurologic: reports: Reviewed and negative Psychiatric: reports: Reviewed and negative Endocrine: reports: Reviewed and negative Immunocompromised: reports: Reviewed and negative PD PAST MEDICAL HISTORY - Past Medical History Cardiovascular: None Respiratory: Asthma Neuro: None Endocrine/Autoimmune: None GI: GERD, Other : None HEENT: None Psych: None Musculoskeletal: None Derm: None - Past Surgical History Past Surgical History: No - Present Medications Home Medications: Ambulatory Orders Medication Instructions Recorded Confirmed No Known Home Medications 12/20/20 12/20/20 - Allergies Allergies/Adverse Reactions: Allergies Allergy/AdvReac Type Severity Reaction Status Date / Time No Known Drug Allergies Allergy Verified 12/20/20 08:19 - Social History Does the pt smoke?: No Smoking Status: Never smoker Does the pt drink ETOH?: No Does the pt have substance abuse?: No - Immunizations Immunizations are current?: Yes - POLST Patient has POLST: No PD ED PE NORMAL - Vitals Vital signs reviewed: Yes - General General: Alert and oriented X 3, No acute distress, Well developed/nourished - HEENT HEENT: Atraumatic, PERRL, EOMI, Moist mucous membranes - Neck Neck: Supple, no meningeal sign, No adenopathy - Cardiac Cardiac: RRR, No murmur, Strong equal pulses - Respiratory Respiratory: No respiratory distress, Clear bilaterally - Abdomen Abdomen: Soft, Non tender, Non distended - Derm Derm: Normal color, Warm and dry, No rash - Extremities Extremities: No deformity, No edema, No calf tenderness / cord - Neuro Neuro: Alert and oriented X 3, testing consultant 2-12 intact, Normal speech, Other (Grossly normal) - Psych Psych: Normal mood, Normal affect PD ED PE EXPANDED - Free text exam Free text exam: No chest wall tenderness. Results - Vitals Vitals: Vital Signs - 24 hr 12/20/20 08:20 Temperature 36.4 C L Heart Rate 60 Respiratory 16 Rate Blood Pressure 127/71 O2 Saturation 99 Oxygen O2 Source Room air - EKG (time done) 0823 Rate: Rate (enter#) (62) Rhythm: NSR [place]: Normal Intervals: Normal [place] QRS: Normal Ischemia: Normal ST segments Compare to prior EKG: Unchanged from prior EKG Computer interpretation: Agree with computer PD MEDICAL DECISION MAKING - ED course Complexity details: reviewed results, re-evaluated patient, considered differential, d/w patient ED course: I discussed with the patient at length that we have done extensive work-up in the emergency department and this is all been negative. This is on top of the fact that the patient is extremely low risk for any of the emergent causes of chest pain at baseline. It is not clear whether the patient continues to return to the emergency department, given that he has been advised already to follow-up with his PCP and that he does not have an emergent condition. We have attempted to reach out to his command to help facilitate better medical care for the patient through the [facility] on a nonemergent basis. We have talked about symptomatic management at home and the usual indications for return. No emergent condition identified today. Departure - Departure Disposition: 01 Home, Self Care Clinical Impression: Chest wall pain Condition: Stable Instructions: ED Chest Pain Atypical Unkn Cause Comments: Once again, your EKG is normal here today. Is not clear why you continue to have chest pain; however, you have been seen multiple times for this and abdominal pain and have had extensive testing to uncover all manner of emergent and urgent causes of chest pain, none of which have been found. On top of this, you are very low risk for any emergent cause of the chest pain to begin with, given your age. Furthermore, you do not have any of the concerning additional symptoms going along with your chest pain that would indicate something more serious going on. As you have been instructed before, the most appropriate course of action is to follow-up for further concerns regarding this issue with your primary doctor. The emergency department has done all that it can to rule out an emergent condition, and at this point in time, can confidently say that there is no evidence of this at this time. Please call today to make an appoint with your doctor. If you develop severe shortness of breath, severe chest pain, and/or facial sweating, lightheadedness, or fainting episodes, Please return to the emergency department. Otherwise, please follow-up as an outpatient for this ongoing symptomatology. Forms: Activity restrictions
[2020-12-20 09:25] VITALS: BP 113/66
== END 2020-12-20 09:25 | disposition home or self-care (01) ==
LOC: ED 08:17
DX: R07.89 Other chest pain (principal); K21.9 Gastro-esophageal reflux disease without esophagitis
CPT/HCPCS: 93005; 99283

== ENCOUNTER 2021-01-25 14:13 | Emergency (ER) | payer OTHER ==
--- NOTE | 2021-01-25 15:36 | ED Physician Documentation ---
History of Present Illness - Stated complaint Stated Complaint: N/V ABD PX - Chief complaint Chief Complaint: Abd Pain - History obtained from History obtained from: Patient - History of Present Illness Timing: Yesterday Pain level max: 6 Pain level now: 5 - Additonal information Additional information: 21-year-old male presents to the emergency department with right upper quadrant abdominal pain. Started yesterday. Was accompanied by nausea and vomiting and diarrhea. Worse with eating and drinking. Better with Zofran[place] Was encouraged to come here today for evaluation. No fevers. No chills. Review of Systems Constitutional: denies: Fever, Chills Cardiac: denies: Chest pain / pressure Respiratory: denies: Dyspnea, Cough GI: denies: Hematemesis, Bloody / black stool : denies: Dysuria Skin: denies: Rash Musculoskeletal: denies: Neck pain, Back pain Neurologic: denies: Headache PD PAST MEDICAL HISTORY - Past Medical History Past Medical History: Yes Cardiovascular: Angina Respiratory: Asthma Neuro: None Endocrine/Autoimmune: None GI: GERD, Chronic constipation, Other : None HEENT: None Psych: Anxiety Musculoskeletal: None Derm: None - Past Surgical History Past Surgical History: No - Present Medications Home Medications: Ambulatory Orders Medication Instructions Recorded Confirmed Esomeprazole Magnesium [Nexium] 40 mg PO DAILY #30 cap 01/25/21 Ondansetron HCl [Zofran] 4 mg PO PRN PRN 01/25/21 01/25/21 - Allergies Allergies/Adverse Reactions: Allergies Allergy/AdvReac Type Severity Reaction Status Date / Time No Known Drug Allergies Allergy Verified 01/25/21 14:24 - Social History Does the pt smoke?: No Smoking Status: Never smoker Does the pt drink ETOH?: No Does the pt have substance abuse?: No - Immunizations Immunizations are current?: Yes - POLST Patient has POLST: No PD ED PE NORMAL - Vitals Vital signs reviewed: Yes - General General: Alert and oriented X 3, No acute distress, Well developed/nourished - HEENT HEENT: Moist mucous membranes - Neck Neck: Supple, no meningeal sign - Cardiac Cardiac: RRR, Strong equal pulses - Respiratory Respiratory: No respiratory distress, Clear bilaterally - Abdomen Abdomen: Soft, Non distended, Other (Tender to palpation right upper quadrant. Negative Garcia sign) - Back Back: No spinal TTP - Derm Derm: Warm and dry - Extremities Extremities: No edema - Neuro Neuro: Alert and oriented X 3 - Psych Psych: Normal mood, Normal affect Results - Vitals Vitals: Vital Signs - 24 hr 01/25/21 01/25/21 01/25/21 14:21 14:54 16:27 Temperature 36.7 C Heart Rate 101 H 85 72 Respiratory 16 18 18 Rate Blood Pressure 115/73 122/70 111/73 O2 Saturation 100 100 100 Oxygen O2 Source Room air - Labs Labs: Laboratory Tests 01/25/21 01/25/21 01/25/21 15:30 15:30 16:17 WBC 5.3 RBC 5.33 Hgb 14.8 Hct 44.4 MCV 83.3 MCH 27.8 MCHC 33.3 RDW 12.0 Plt Count 220 MPV 10.4 Neut # (Auto) 3.0 Lymph # (Auto) 1.4 L [place] # (Auto) 0.5 Eos # (Auto) 0.4 Baso # (Auto) 0.1 Absolute Nucleated RBC 0.00 Nucleated RBC % 0.0 Sodium 142 Potassium 3.6 Chloride 106 Carbon Dioxide 29 Anion Gap 7.0 BUN 13 Creatinine 1.0 Estimated GFR (MDRD) 93 Glucose 104 H Calcium 10.3 Total Bilirubin 0.8 AST 17 ALT 14 Alkaline Phosphatase 74 Total Protein 7.6 Albumin 4.7 Globulin 2.9 Albumin/Globulin Ratio 1.6 Lipase 28 Urine Color YELLOW Urine Clarity CLEAR Urine pH 7.5 Ur Specific [place] 1.020 Urine Protein NEGATIVE Urine Glucose (UA) NEGATIVE Urine Ketones NEGATIVE Urine Occult Blood NEGATIVE Urine Nitrite NEGATIVE Urine Bilirubin NEGATIVE Urine Urobilinogen 0.2 (NORMAL) Ur Leukocyte Esterase NEGATIVE Ur Microscopic Review NOT INDICATED Urine Culture Comments NOT INDICATED - Rads (name of study) Right upper quadrant ultrasound Radiology: Final report received, EMP read contemporaneously, See rad report ( FINDINGS: Hyperechoic focus within the left hepatic lobe is present, compatible with a hemangioma. Liver is normal in size. Gallbladder is within normal limits. No biliary ductal dilatation. Pancreas is within normal limits. Right kidney is grossly unremarkable.) PD MEDICAL DECISION MAKING - ED course Complexity details: reviewed results, re-evaluated patient, considered differential, d/w patient ED course: 21-year-old male with abdominal pain and vomiting yesterday. Pain improved in the emergency department. No acute findings on laboratory testing or right upper quadrant ultrasound. No indication for CT. Tolerating p.o. without difficulty here. Abdomen is soft, nontender nondistended on serial examination. Patient counseled regarding signs and symptoms for which I believe and urgent re-evaluation would be necessary. Patient with good understanding of and agreement to plan and is comfortable going home at this time This document was made in part using voice recognition software. While efforts are made to proofread this document, sound alike and grammatical errors may occur. Departure - Departure Disposition: 01 Home, Self Care Clinical Impression: Abdominal pain Qualifiers: Abdominal location: right lower quadrant Qualified Code(s): R10.31 - Right lower quadrant pain Vomiting Qualifiers: Vomiting type: unspecified Vomiting Intractability: non-intractable Nausea presence: with nausea Qualified Code(s): R11.2 - Nausea with vomiting, unspecified Condition: Good Instructions: ED Nausea Vomiting, ED Abdominal Pain Unkn Cause Male Follow-Up: AMANDA GRUBBS MD [Primary Care Provider] - Within 1 week Prescriptions: Esomeprazole Magnesium [Nexium] 40 mg PO DAILY #30 cap Comments: Cause of your symptoms is unclear today. Your laboratory testing does not show any acute abnormalities. Your ultrasound reveals the same spot that was present on the CT and MRI you had earlier this year. Your symptoms could be due to a duodenal ulcer. It is recommended that you have an EGD performed. This can be ordered by your doctor. Please return if you worsen. Your prescription was sent to [facility] in [place]. Forms: Activity restrictions Discharge Date/Time: 01/25/21 18:59
[2021-01-25 15:42] LABS: BASOPHILS # (AUTO) 0.1 10^3/uL (0.0-0.1); BASOPHILS % (AUTO) 0.9 %; EOSINOPHILS # (AUTO) 0.4 10^3/uL (0.0-0.7); EOSINOPHILS % (AUTO) 6.8 %; HCT - HEMATOCRIT 44.4 % (42.0-52.0); HGB - HEMOGLOBIN 14.8 g/dL (14.0-18.0); LYMPHOCYTES # (AUTO) 1.4 10^3/uL (1.5-3.5); MEAN CORPUSCULAR HEMOGLOBIN 27.8 pg (27.0-31.0); MEAN CORPUSCULAR HGB CONC 33.3 g/dL (32.0-36.0); MEAN CORPUSCULAR VOLUME 83.3 fL (80.0-94.0); MEAN PLATELET VOLUME 10.4 fL (7.4-11.4); MONOCYTES # (AUTO) 0.5 10^3/uL (0.0-1.0); MONOCYTES % (AUTO) 8.5 %; NEUTROPHILS % (AUTO) 57.4 %; PLT - PLATELET COUNT 220 10^3/uL (130-450); RED BLOOD COUNT 5.33 10^6/uL (4.70-6.10); WHITE BLOOD COUNT 5.3 x10^3/uL (4.8-10.8)
[2021-01-25 15:56] LABS: ALBUMIN 4.7 g/dL (3.2-5.5); ALBUMIN/GLOBULIN RATIO 1.6 (1.0-2.2); BILIRUBIN,TOTAL 0.8 mg/dL (0.2-1.0); CALCIUM 10.3 mg/dL (8.5-10.3); POTASSIUM 3.6 mmol/L (3.5-5.0); TOTAL PROTEIN 7.6 g/dL (6.7-8.2)
[2021-01-25] MEDS ORDERED: SODIUM CHLORIDE 0.9% 1,000 ML IV STA (16:16)
[2021-01-25 16:28] VITALS: BP 111/73
[2021-01-25 16:32] LABS: BILIRUBIN,URINE NEGATIVE (NEGATIVE); GLUCOSE, URINE (UA) NEGATIVE (NEGATIVE); KETONES,URINE (UA) NEGATIVE (NEGATIVE); LEUKOCYTE ESTERASE, URINE NEGATIVE (NEGATIVE); NITRITE,URINE NEGATIVE (NEGATIVE); OCCULT BLOOD,URINE NEGATIVE (NEGATIVE); PH,URINE 7.5 PH (5.0-7.5); PROTEIN,URINE NEGATIVE (NEGATIVE); UROBILINOGEN,URINE 0.2 (NORMAL) E.U./dL (NORMAL)
[2021-01-25 16:34] LABS: CLARITY,URINE CLEAR (CLEAR)
--- NOTE | 2021-01-25 17:57 | Ultrasound Report ---
PROCEDURE: Abdomen Limited INDICATIONS: RUQ pain, vomiting TECHNIQUE: Real-time focused scanning was performed of the abdomen, with image documentation. COMPARISON: 09/27/2020 MRI FINDINGS: Hyperechoic focus within the left hepatic lobe is present, compatible with a hemangioma. L iver is normal in size. Gallbladder is within normal limits. No biliary ductal dilatation. Pancreas i s within normal limits. Right kidney is grossly unremarkable. IMPRESSION: No acute process. Reviewed by: Stepan Ashraf MD on 01/25/2021 5:56 PM PDT Approved by: Stepan Ashraf MD on 01/25/2021 5:56 PM PDT Station ID: [id number]
== END 2021-01-25 18:59 | disposition home or self-care (01) ==
LOC: ED 14:13
DX: R10.11 Right upper quadrant pain (principal); R11.2 Nausea with vomiting, unspecified; R19.7 Diarrhea, unspecified
CPT/HCPCS: 36415; 80053; 81001; 81003; 83690; 85025; 87086; 96360; 99283